=== PATIENT | female | born 1960 | race Caucasian/White ===

== ENCOUNTER 2020-04-10 07:00 | Outpatient (CLI) | payer OTHER ==
[2020-04-10 17:34] LABS: Bilirubin Neg (Negative); Blood, Urine 25 (Negative); Clarity Clear (Clear); Glucose, Urine (Dipstick) Normal (Negative); Ketone, Urine Negative (Negative); Leukocyte 25 (Negative); Nitrite Negative (Negative); Protein, Urine (Dipstick) Negative (Neg-Trace); Urobilinogen Normal mg/dL (Less than 2)
[2020-04-10 17:44] LABS: #Basophils 0.1 10x3/uL (0.0-0.2); #Eosinphils 0.2 10x3/uL (0.0-0.5); #Neutrophils 5.8 10x3/uL (1.5-8.4); %Basophils 1.1 % (0.0-2.0); %Eosinophils 2.1 % (0.0-6.0); %Neutrophils 59.4 % (40.0-75.0); Hemoglobin 14.8 g/dL (12.0-16.0); Mean Corpuscular HGB CONC 34.7 G/DL (32.0-36.0); Mean Corpuscular Hemoglobin 31.5 PG (27.0-33.0); Mean Corpuscular Volume 90.9 fl (80.0-100.0); Mean Platelet Volume 9.6 fl (7.4-10.4); Platelet Count 489 10x3/uL (130-400); RBC Distribution Width 11.8 % (11.5-14.5); White Blood Cell (WBC) Count 9.8 10x3/uL (4.5-11.0)
[2020-04-10 17:45] LABS: Prothrombin Time 10.3 sec (9.5-12.1)
[2020-04-10 17:50] LABS: RBC/HPF 0-3 HPF (0-3)
[2020-04-10 17:51] LABS: Bacteria/HPF Rare-Few HPF (None Seen); Squamous Epithelial 0-3 HPF (0-3); WBC/HPF 0-3 HPF (0-3)
[2020-04-10 18:00] LABS: Anion Gap 18 mmol/L (10-20); BUN (Urea Nitrogen) 18 mg/dL (9.8-20.1); Calc. Creatinine Clearance 0 mL/min (70-130); Calcium 9.6 mg/dL (7.8-10.44); Carbon Dioxide 27 mmol/L (22-29); Chloride 97 mmol/L (98-107); Estimated GFR-MDRD 80; Glucose 100 mg/dL (70-105); Potassium 3.3 mmol/L (3.5-5.1); Sodium 139 mmol/L (136-145)
[2020-04-11 14:45] LABS: SARS-CoV-2 MS2 Positive; SARS-CoV-2 N Gene Negative; SARS-CoV-2 S Gene Negative; SARS-CoV-2 by NAA Not Detected (NotDetected); SARS-CoV-2 orf1ab Negative
== END 2020-04-10 07:01 | disposition home or self-care (01) ==
LOC: LABBT 07:00
PROVIDERS: ATTEND Orthopaedic Surgery
DX: Z01.818 Encounter for other preprocedural examination (principal); Z20.828 Contact with and (suspected) exposure to other viral communicable diseases; M17.11 Unilateral primary osteoarthritis, right knee
CPT/HCPCS: 80048; 81001; 85025; 85610; 87081; 87086; 87635; 93005; 93010; U0003

== ENCOUNTER 2020-04-15 08:53 | Day surgery (SDC) | payer OTHER ==
[2020-04-12 08:55] VITALS: BMI 25.0
--- NOTE | 2020-04-13 19:38 | HP ---
HISTORY OF PRESENT ILLNESS: The patient is a 59-year-old female with a 4-year history of progressive pain and stiffness in her right knee without specific history of recent injury. She used to be a runner. She has had progressive pain despite rest, restriction of activities, anti-inflammatory medications, and previous cortisone injections. She also takes hydrocodone. The pain is now interfering with day-to-day activities including walking, getting dressed, and sleeping. She is unable to work because of her pain and stiffness. PAST MEDICAL HISTORY: The patient also has arthritic symptoms in her hands. She has history of anxiety and nerves, chronic pain, and hypertension. CURRENT MEDICATIONS: Include; 1. Hydrocodone for pain. 2. Atenolol. ALLERGIES: SHE HAS NO KNOWN ALLERGIES. FAMILY HISTORY: Otherwise unremarkable. SOCIAL HISTORY: Otherwise unremarkable. REVIEW OF SYSTEMS: Otherwise unremarkable. PHYSICAL EXAMINATION: GENERAL: Reveals a healthy female. HEENT: Unremarkable. NECK: Supple. CHEST: Clear. HEART: Regular rate and rhythm. ABDOMEN: Soft, nontender. PELVIC: Deferred. RECTAL: Deferred. BREASTS: Deferred. EXTREMITIES: Pertinent findings related to the right lower extremity. There is no tenderness about the right hip and no pain with range of motion of the right hip. Examination of the right knee reveals mild puffiness, but no effusion. There is mild varus deformity. There is right antalgic gait. There is 30 degree flexion contracture with further flexion to 95 degrees, which is painful, and there is crepitus with range of motion. There is tenderness over the medial joint line. There is no instability. Neurovascular exam is intact. Distal pulses are 2+. DIAGNOSTIC STUDIES: X-rays of the right knee reveal severe DJD and [id number] collapse medially. There is moderately severe DJD in the left knee. IMPRESSION: Degenerative arthritis, right knee. PLAN: Right total knee replacement. The nature of the surgery, length of recovery, and potential complications such as infection, loss of motion, incomplete relief, delayed wound healing, neurovascular injury, thromboembolic phenomena, possible transfusion, need for revision were discussed in detail. Job ID: [id number]
[2020-04-15] MEDS ORDERED: Vancomycin 1 GM/200 ML BAG ONE (09:50)
[2020-04-15] MEDS ORDERED: Fentanyl 100 MCG/2 ML VIAL ONE ×3 (10:29→14:42)
[2020-04-15] MEDS ORDERED: Midazolam HCl 2 mg/2 ml Vial ONE (10:29)
[2020-04-15] MEDS ORDERED: Tranexamic Acid 1,000 MG/10 ML VIAL ONE ×2 (10:54→14:27)
[2020-04-15] MEDS ORDERED: Sodium Chloride 0.9% 100 ML ONE (10:55)
[2020-04-15] MEDS ORDERED: Fentanyl 100 MCG/2 ML VIAL IV PRN (11:05)
[2020-04-15] MEDS ORDERED: HYDROcodone/Acetaminophen 10/325 mg Tablet PO PRN ×3 (11:15→13:48)
[2020-04-15] MEDS ORDERED: Ondansetron PF 4 MG/2 ML Vial IVP PRN ×2 (11:15→13:48)
[2020-04-15] MEDS ORDERED: Promethazine HCl 25 MG/ML VIAL IM PRN (11:15)
[2020-04-15] MEDS ORDERED: traMADol HCl 50 MG TAB PO PRN ×3 (11:15→13:48)
[2020-04-15] MEDS ORDERED: Zolpidem Tartrate 5 MG TAB PO PRN ×2 (11:15→13:48)
[2020-04-15] MEDS ORDERED: Ropivacaine HCl/PF 250 ML in Premix Bag 1 BAG NERVE BLCK SCH (11:15)
[2020-04-15] MEDS ORDERED: Lidocaine 1% w/Epinephrine 1:100K 20 ML VIAL ONE (11:58)
[2020-04-15] MEDS ORDERED: Bupivacaine 0.25% HCL 30 ML VIAL ONE (11:58)
[2020-04-15] MEDS ORDERED: EPHEDRINE 25 MG/5 ML SYRINGE ONE (12:08)
[2020-04-15] MEDS ORDERED: Lidocaine 1% PF 5 ML VIAL ONE (12:08)
[2020-04-15] MEDS ORDERED: Dexamethasone 20 MG/5 ML VIAL ONE (12:08)
[2020-04-15] MEDS ORDERED: PROPOFOL 200 MG/20 ML VIAL ONE (12:08)
[2020-04-15] MEDS ORDERED: Bupivacaine HCl 0.5%/Epinephrine 1:200,000/PF 30 ml Vial ONE (12:08)
[2020-04-15] MEDS ORDERED: Ropivacaine 0.2% HCl/PF (40 MG/20 ML VIAL) ONE (12:08)
[2020-04-15] MEDS ORDERED: Ondansetron PF 4 MG/2 ML Vial ONE (12:08)
[2020-04-15] MEDS ORDERED: Fentanyl 100 MCG/2 ML VIAL SLOW IVP PRN (13:48)
[2020-04-15] MEDS ORDERED: Tranexamic Acid 1,000 MG in Sodium Chloride 0.9% 100 ML IVPB SCH ×2 (13:48→14:15)
[2020-04-15] MEDS ORDERED: diphenhydrAMINE 25 MG CAP PO PRN (13:48)
[2020-04-15] MEDS ORDERED: Promethazine HCl 25 MG/ML VIAL SLOW IVP PRN (13:48)
[2020-04-15] MEDS ORDERED: Acetaminophen 325 MG TAB PO PRN (13:48)
[2020-04-15] MEDS ORDERED: Ketorolac Tromethamine 30 MG/ML VIAL ONE (14:27)
[2020-04-15] MEDS ORDERED: Multivitamin W/ Minerals 1 TAB PO SCH (14:30)
[2020-04-15] MEDS ORDERED: Aspirin 81 mg Enteric Coated Tablet PO SCH (14:30)
[2020-04-15] MEDS ORDERED: Senokot S 8.6-50 MG TAB PO SCH (14:30)
--- NOTE | 2020-04-15 14:39 | RAD ---
XR Knee Rt 2 View History: Total knee postop Comparison: None. Findings: Satisfactory appearance right total knee arthroplasty and patellar resurfacing. Expected po stoperative gas and edema. No complication. Impression: Satisfactory postoperative appearance.
[2020-04-15] MEDS ORDERED: Morphine 4 MG/ML VIAL ONE (14:52)
[2020-04-15] MEDS ORDERED: Morphine 2 MG/ML VIAL ONE (15:23)
[2020-04-15] MEDS: Sodium Chloride 0.9% 1,000 ML IV SCH ×2 (17:04→22:10)
[2020-04-15] MEDS: CEFAZOLIN 2 GM in Premix Bag 1 BAG IVPB SCH (17:14)
[2020-04-15] MEDS: HYDROcodone/Acetaminophen 10/325 mg Tablet PO PRN ×2 (17:17→22:09)
--- NOTE | 2020-04-15 18:34 | OP ---
DATE OF PROCEDURE: 04/15/2020 SENIOR PRODUCT INTEGRITY ENGINEER: Hannah Betancourt PA-C. The tourist information assistant co-surgeon was present through the entire procedure and was responsible for providing exposure, tissue retraction, and any necessary limb or tissue manipulation required to obtain necessary reduction or hardware placement. The tourist information assistant co-surgeon also provided bleeding control, tissue closure, and suturing in conjunction with the primary surgeon. ANESTHESIA: General plus adductor canal and sciatic nerve blocks. PREOPERATIVE DIAGNOSIS: Severe degenerative joint disease of right knee with severe flexion contracture. POSTOPERATIVE DIAGNOSIS: Severe degenerative joint disease of right knee with severe flexion contracture. PROCEDURE PERFORMED: Right total knee replacement with computer-assisted navigation with cemented [place] [employer] components (#4 femoral component, #4 primary tibial baseplate with 9 mm CS plastic insert, and all-plastic A29 patellar component). DESCRIPTION OF PROCEDURE: After satisfactory anesthesia was induced in supine position, sequential compression device was applied to the nonoperative leg throughout the procedure. The right leg was then prepped and draped in routine manner. The right leg was elevated and exsanguinated with an Esmarch bandage and the tourniquet inflated to 250 mmHg. A gently curved medial parapatellar incision was made, carried down through subcutaneous tissues. Bleeding points were controlled with Bovie cautery. Medial parapatellar arthrotomy was performed, patella was dislocated laterally and portion of the fat pad was excised for exposure. There was marked degenerative arthritis of the knee of all compartments, especially medially with large areas of exposed bone. Medial and lateral gutters were freed up. The meniscal remnants and osteophytes were removed. Using the [place] pinless navigation system and the appropriate guides, the distal femoral and proximal tibial articular surfaces were excised with an oscillating saw to accept the trial components. It was felt that #4 femoral component and #4 primary tibial baseplate with 9 mm CS plastic insert give appropriate size, fit, and stability. I was able to get the knee in virtual full extension. This did require removal of large posterior osteophytes off the femur and releasing portions of posterior capsule and popliteus tendon. The patellar articular surface was excised to accept an all-plastic A29 patellar component. There was good range of motion and good patellar tracking. The trial components were removed, the knee was copiously irrigated with pulsatile lavage, the bony surfaces were thoroughly cleaned and dried. The permanent components were then cemented in a single stage using one pack of cement premixed with 1 g of tobramycin powder. Excess cement was removed. There was again good fit and stability of the components. The knee was then copiously irrigated. The medial retinaculum and quadriceps mechanism were closed with interrupted #2 Vicryl and a running #2 Quill. Subcutaneous tissue was closed with running 0 Quill suture, and the skin closed with running subcuticular 3-0 Monoderm and SurgiSeal skin adhesive. A sterile bulky compressive dressing was applied and the tourniquet deflated after 71 minute. The foot promptly pinked up. A sequential compression device was applied to her operated leg and she was placed into a knee immobilizer with the knee in full extension to prevent recurrence of the flexion contracture. She was awakened and taken to the recovery room in stable condition. There were no apparent intraoperative complications. The estimated blood loss was less than 100 mL. Job ID: [id number]
[2020-04-15] MEDS: Senokot S 8.6-50 MG TAB PO SCH (21:06)
[2020-04-15] MEDS: Aspirin 81 mg Enteric Coated Tablet PO SCH (21:06)
[2020-04-15] MEDS: Ketorolac Tromethamine 30 MG/ML VIAL IVP SCH (21:06)
[2020-04-15] MEDS ORDERED: Vancomycin 1 GM in Premix Bag 1 BAG IVPB SCH (22:00)
[2020-04-16] MEDS: Ketorolac Tromethamine 30 MG/ML VIAL IVP SCH ×4 (03:27→20:38)
[2020-04-16] MEDS: CEFAZOLIN 2 GM in Premix Bag 1 BAG IVPB SCH (03:27)
[2020-04-16 05:30] LABS: Hemoglobin 11.9 g/dL (12.0-16.0); Mean Corpuscular HGB CONC 35.2 g/dL (32.0-36.0); Mean Corpuscular Hemoglobin 33.1 pg (27.0-31.0); Mean Corpuscular Volume 93.8 fL (78.0-98.0); Mean Platelet Volume 7.3 fL (7.4-10.4); Platelet Count 342 thou/uL (130-400); RBC Distribution Width 11.2 % (11.5-14.5); Red Blood Cell (RBC) Count 3.61 mill/uL (4.20-5.40); White Blood Cell (WBC) Count 16.1 thou/uL (4.8-10.8)
[2020-04-16] MEDS: HYDROcodone/Acetaminophen 10/325 mg Tablet PO PRN ×4 (06:35→20:37)
[2020-04-16] MEDS: Multivitamin W/ Minerals 1 TAB PO SCH (09:29)
[2020-04-16] MEDS: Senokot S 8.6-50 MG TAB PO SCH ×2 (09:30→20:39)
[2020-04-16] MEDS: Aspirin 81 mg Enteric Coated Tablet PO SCH ×2 (09:30→20:38)
[2020-04-16] MEDS: Atenolol 50 MG TAB PO SCH (09:30)
[2020-04-16] MEDS: Sodium Chloride 0.9% 1,000 ML IV SCH ×2 (11:25→20:38)
[2020-04-16] MEDS: Fentanyl 100 MCG/2 ML VIAL SLOW IVP PRN ×2 (15:58→17:31)
[2020-04-17] MEDS: Ketorolac Tromethamine 30 MG/ML VIAL IVP SCH ×2 (02:17→07:39)
[2020-04-17] MEDS: HYDROcodone/Acetaminophen 10/325 mg Tablet PO PRN ×3 (02:45→11:50)
[2020-04-17] MEDS: Fentanyl 100 MCG/2 ML VIAL SLOW IVP PRN (04:13)
[2020-04-17] MEDS: Sodium Chloride 0.9% 1,000 ML IV SCH (07:17)
[2020-04-17] MEDS: Aspirin 81 mg Enteric Coated Tablet PO SCH (07:39)
[2020-04-17] MEDS: Atenolol 50 MG TAB PO SCH (07:39)
[2020-04-17] MEDS: Multivitamin W/ Minerals 1 TAB PO SCH (07:39)
[2020-04-17] MEDS: Senokot S 8.6-50 MG TAB PO SCH (07:42)
[2020-04-17 11:38] VITALS: BP 126/78; TEMP 98.6
--- NOTE | 2020-04-18 15:28 | DIS ---
DATE OF ADMISSION: 04/15/2020 DATE OF DISCHARGE: 04/17/2020 This is Julio Saez PA-C dictating a report for Rodrigue Cotter MD. PREOPERATIVE DIAGNOSIS: Right knee osteoarthritis. POSTOPERATIVE DIAGNOSIS: Right knee osteoarthritis. PROCEDURE PERFORMED: The patient underwent a right total knee replacement. HOSPITAL STAY: Unremarkable. Admitted to [address], where she worked with staff physical therapy, Occupational therapy, and progressed quite well. By postop day 2, she was ready to discharge home. DISCHARGE CONDITION: Good/stable. DISPOSITION: Home. FOLLOWUP: Followup would be in 2 to 4 weeks or sooner if there are problems or concerns. DISCHARGE MEDICATIONS: Given with usage instructions. Job ID: [id number]
== END 2020-04-17 13:20 | disposition home or self-care (01) ==
LOC: SDC 08:53 → SJJU 13:48 → SDC 04-17 13:20
PROVIDERS: ATTEND Orthopaedic Surgery
PROC: 8E0YXBZ Computer Assisted Procedure of Lower Extremity (ICD-10-PCS; principal; 2020-04-15)
PROC: 3E0T3BZ Introduction of Anesthetic Agent into Peripheral Nerves and Plexi, Percutaneous Approach (ICD-10-PCS; principal; 2020-04-15)
PROC: 0SRC0J9 Replacement of Right Knee Joint with Synthetic Substitute, Cemented, Open Approach (ICD-10-PCS; principal; 2020-04-15)
DX: M17.0 Bilateral primary osteoarthritis of knee (principal); G89.18 Other acute postprocedural pain; I10 Essential (primary) hypertension; F41.9 Anxiety disorder, unspecified; Z79.899 Other long term (current) drug therapy
CPT/HCPCS: 36415; 85027; C1713; C1776; J0690; J1100; J1885; J2250; J2270; J2405; J2704; J2795; J3010; J3370; J3490; S0020

== ENCOUNTER 2020-10-03 13:30 | Inpatient (IN) | payer OTHER ==
[2020-10-08] MEDS ORDERED: Midazolam HCl 2 mg/2 ml Vial ONE (06:22)
[2020-10-08] MEDS ORDERED: Fentanyl 100 MCG/2 ML VIAL ONE ×3 (06:22→09:18)
[2020-10-08] MEDS ORDERED: Lidocaine 1% (PF) 30 ML VIAL ONE (06:22)
[2020-10-08] MEDS ORDERED: EPINEPHrine 1 MG/ML AMP ONE (06:25)
[2020-10-08] MEDS ORDERED: Bupivacaine 0.25% HCL 30 ML VIAL ONE (06:25)
[2020-10-08] MEDS ORDERED: Tranexamic Acid 1,000 MG/10 ML VIAL ONE (06:32)
[2020-10-08] MEDS ORDERED: Sodium Chloride 0.9% 100 ML ONE (06:32)
[2020-10-08] MEDS ORDERED: Vancomycin 1 GM/200 ML BAG ONE (06:32)
[2020-10-08] MEDS ORDERED: PROPOFOL 200 MG/20 ML VIAL ONE (07:12)
[2020-10-08] MEDS ORDERED: Ondansetron PF 4 MG/2 ML Vial ONE (07:12)
[2020-10-08] MEDS ORDERED: Lidocaine 1% PF 5 ML VIAL ONE (07:12)
[2020-10-08] MEDS ORDERED: Ketorolac Tromethamine 30 MG/ML VIAL ONE (07:12)
[2020-10-08] MEDS ORDERED: Ropivacaine 2% HCl/PF (20 MG/10 ML VIAL) ONE (07:12)
[2020-10-08] MEDS ORDERED: Dexamethasone 20 MG/5 ML VIAL ONE (07:12)
[2020-10-08] MEDS ORDERED: Bupivacaine HCl 0.5%/Epinephrine 1:200,000/PF 30 ml Vial ONE (07:12)
[2020-10-08] MEDS ORDERED: Promethazine HCl 25 MG/ML VIAL SLOW IVP PRN (08:00)
[2020-10-08] MEDS ORDERED: Ondansetron HCl/PF 4 MG/2 ML Vial IVP PRN (08:00)
[2020-10-08] MEDS ORDERED: Promethazine HCl 25 MG/ML VIAL IM PRN ×3 (08:00→14:39)
[2020-10-08] MEDS ORDERED: Fentanyl 100 MCG/2 ML VIAL SLOW IVP PRN ×3 (08:22→14:39)
[2020-10-08] MEDS ORDERED: HYDROcodone/Acetaminophen 10/325 mg Tablet PO PRN ×2 (08:30)
[2020-10-08] MEDS ORDERED: Ropivacaine HCl/PF 250 ML in Premix Bag 1 BAG NERVE BLCK SCH (08:30)
[2020-10-08] MEDS ORDERED: Ondansetron PF 4 MG/2 ML Vial IVP PRN (08:30)
[2020-10-08] MEDS ORDERED: traMADol HCl 50 MG TAB PO PRN ×3 (08:30→14:39)
[2020-10-08] MEDS ORDERED: Zolpidem Tartrate 5 MG TAB PO PRN ×2 (08:30→14:39)
[2020-10-08] MEDS ORDERED: Bupivacaine 0.5% 10 ML VIAL ONE (09:50)
[2020-10-08] MEDS ORDERED: Ropivacaine 0.2% 550 ML 550 ML NERVE BLCK SCH (10:15)
[2020-10-08] MEDS ORDERED: Ketorolac Tromethamine 30 MG/ML VIAL IVP SCH (12:00)
[2020-10-08] MEDS ORDERED: HYDROcodone/Acetaminophen 10/325 mg Tablet ONE (12:15)
[2020-10-08] MEDS ORDERED: diphenhydrAMINE 25 MG CAP PO PRN (14:39)
[2020-10-08] MEDS ORDERED: Acetaminophen 325 MG TAB PO PRN (14:39)
[2020-10-08] MEDS: Ketorolac Tromethamine 30 MG/ML VIAL IVP SCH (16:55)
[2020-10-08] MEDS: Dextrose 5 %-0.45 % NaCl 1,000 ML IV SCH (16:55)
[2020-10-08] MEDS: HYDROcodone/Acetaminophen 10/325 mg Tablet PO PRN ×2 (17:04→21:35)
[2020-10-08 17:10] VITALS: BMI 24.1
[2020-10-08] MEDS ORDERED: Vancomycin HCl 1 GM in Sodium Chloride 0.9% 250 ML 300 ML IVPB SCH (18:00)
[2020-10-08] MEDS: Aspirin 81 mg Enteric Coated Tablet PO SCH (20:01)
[2020-10-08] MEDS: Ferrous Gluconate 324 MG TAB PO SCH (20:01)
[2020-10-08] MEDS: Senokot S 8.6-50 MG TAB PO SCH (20:02)
[2020-10-08] MEDS: CEFAZOLIN 2 GM in Premix Bag 1 BAG IVPB SCH (21:34)
[2020-10-09] MEDS: Ketorolac Tromethamine 30 MG/ML VIAL IVP SCH ×4 (00:42→23:47)
[2020-10-09] MEDS: Dextrose 5 %-0.45 % NaCl 1,000 ML IV SCH ×3 (00:47→22:11)
[2020-10-09 05:39] LABS: Hemoglobin 11.1 g/dL (12.0-16.0); Mean Corpuscular HGB CONC 33.2 g/dL (32.0-36.0); Mean Corpuscular Hemoglobin 31.5 pg (27.0-31.0); Mean Corpuscular Volume 94.9 fL (78.0-98.0); Platelet Count 331 thou/uL (130-400); RBC Distribution Width 11.5 % (11.5-14.5); Red Blood Cell (RBC) Count 3.52 mill/uL (4.20-5.40); White Blood Cell (WBC) Count 14.2 thou/uL (4.8-10.8)
[2020-10-09] MEDS: CEFAZOLIN 2 GM in Premix Bag 1 BAG IVPB SCH (06:10)
[2020-10-09] MEDS: HYDROcodone/Acetaminophen 10/325 mg Tablet PO PRN ×4 (06:10→23:48)
[2020-10-09] MEDS: Ondansetron PF 4 MG/2 ML Vial IVP PRN (07:21)
[2020-10-09] MEDS ORDERED: Ketorolac Tromethamine 30 MG/ML VIAL ONE ×2 (08:15→16:27)
[2020-10-09] MEDS: Senokot S 8.6-50 MG TAB PO SCH ×2 (08:20→20:30)
[2020-10-09] MEDS: Aspirin 81 mg Enteric Coated Tablet PO SCH ×2 (08:20→20:30)
[2020-10-09] MEDS: Multivitamin W/ Minerals 1 TAB PO SCH (08:20)
[2020-10-09] MEDS: Ferrous Gluconate 324 MG TAB PO SCH ×2 (08:20→20:29)
[2020-10-09] MEDS ORDERED: ADDERALL 20 MG TAB PO SCH (09:00)
[2020-10-09] MEDS ORDERED: Sodium Chloride 0.9% 500 ML BAG IV SCH (10:00)
[2020-10-09] MEDS: Atenolol 50 MG TAB PO SCH (10:18)
[2020-10-10 05:36] LABS: Hemoglobin 11.3 g/dL (12.0-16.0); Mean Corpuscular HGB CONC 34.1 g/dL (32.0-36.0); Mean Corpuscular Hemoglobin 32.6 pg (27.0-31.0); Mean Corpuscular Volume 95.5 fL (78.0-98.0); Mean Platelet Volume 7.3 fL (7.4-10.4); Platelet Count 309 thou/uL (130-400); RBC Distribution Width 11.7 % (11.5-14.5); Red Blood Cell (RBC) Count 3.45 mill/uL (4.20-5.40); White Blood Cell (WBC) Count 11.2 thou/uL (4.8-10.8)
[2020-10-10] MEDS: HYDROcodone/Acetaminophen 10/325 mg Tablet PO PRN ×2 (06:00→10:45)
[2020-10-10] MEDS: Dextrose 5 %-0.45 % NaCl 1,000 ML IV SCH (06:41)
[2020-10-10] MEDS: Ondansetron PF 4 MG/2 ML Vial IVP PRN (09:27)
[2020-10-10] MEDS: Aspirin 81 mg Enteric Coated Tablet PO SCH (09:34)
[2020-10-10] MEDS: Atenolol 50 MG TAB PO SCH (09:35)
[2020-10-10] MEDS: Ferrous Gluconate 324 MG TAB PO SCH (09:35)
[2020-10-10] MEDS: Multivitamin W/ Minerals 1 TAB PO SCH (09:35)
[2020-10-10] MEDS: Senokot S 8.6-50 MG TAB PO SCH (09:36)
[2020-10-10] MEDS: Ketorolac Tromethamine 30 MG/ML VIAL IVP SCH (09:40)
[2020-10-10] MEDS ORDERED: Ketorolac Tromethamine 30 MG/ML VIAL ONE (09:40)
[2020-10-10 12:24] VITALS: BP 110/69; TEMP 98.8
== END 2020-10-10 14:32 | disposition home or self-care (01) | DRG 470 ==
LOC: SURG A 10-08 05:37
PROVIDERS: ADMIT Orthopaedic Surgery; ATTEND Orthopaedic Surgery
PROC: 0SRD0J9 Replacement of Left Knee Joint with Synthetic Substitute, Cemented, Open Approach (ICD-10-PCS; principal; 2020-10-08)
DX: M17.12 Unilateral primary osteoarthritis, left knee (principal); F41.9 Anxiety disorder, unspecified; I10 Essential (primary) hypertension
CPT/HCPCS: 36415; 36416; 85027; A4306; C1713; C1776; J0171; J0690; J1100; J1885; J2001; J2250; J2405; J2704; J2795; J3010; J3370; J3490; J7030; J7050; S0020

== ENCOUNTER 2020-10-03 13:32 | Outpatient (CLI) | payer OTHER ==
[2020-10-03 15:29] LABS: INR-International Normal Ratio 0.9; Prothrombin Time 10.5 sec (9.5-12.1)
[2020-10-03 15:40] LABS: #Basophils 0.1 10x3/uL (0.0-0.2); #Eosinphils 0.2 10x3/uL (0.0-0.5); #Neutrophils 7.9 10x3/uL (1.5-8.4); %Basophils 0.6 % (0.0-2.0); %Eosinophils 1.4 % (0.0-6.0); %Lymphocytes 19.7 % (18.0-47.0); %Monocytes 8.5 % (0.0-10.0); %Neutrophils 69.3 % (40.0-75.0); Hemoglobin 14.4 g/dL (12.0-15.5); Mean Corpuscular HGB CONC 35.5 g/dL (32.0-36.0); Mean Corpuscular Hemoglobin 31.7 pg (27.0-33.0); Mean Corpuscular Volume 89.4 fl (81.6-98.3); Mean Platelet Volume 9.9 fl (7.4-10.4); Platelet Count 486 10x3/uL (150-450); RBC Distribution Width 12.2 % (11.5-14.5); Red Blood Cell (RBC) Count 4.54 10x6/uL (3.90-5.03); White Blood Cell (WBC) Count 11.4 10x3/uL (3.5-10.5)
[2020-10-03 15:56] LABS: Anion Gap 20 mmol/L (10-20); BUN (Urea Nitrogen) 18 mg/dL (9.8-20.1); Calc. Creatinine Clearance 0 mL/min (70-130); Calcium 9.7 mg/dL (7.8-10.44); Carbon Dioxide 27 mmol/L (22-29); Chloride 95 mmol/L (98-107); Glucose 96 mg/dL (70-105); Potassium 3.1 mmol/L (3.5-5.1); Sodium 139 mmol/L (136-145)
[2020-10-04 01:48] LABS: SARS-CoV-2 PCR by NAA Not Detected (NotDetected)
[2020-10-07 12:05] VITALS: BMI 24.1
== END 2020-10-03 13:33 | disposition home or self-care (01) ==
LOC: LABBT 13:32
PROVIDERS: ATTEND Orthopaedic Surgery
DX: Z01.818 Encounter for other preprocedural examination (principal); M17.12 Unilateral primary osteoarthritis, left knee; Z20.822 Contact with and (suspected) exposure to COVID-19
CPT/HCPCS: 80048; 85025; 85610; 87081; 87635; 93005; 93010; U0003; U0005